=== PATIENT | male | born 2000 | race Caucasian/White ===

== ENCOUNTER 2023-11-28 01:08 | Inpatient (IN) | payer MEDICAID, OTHER ==
[~2023-11-28] VITALS: Ht 172.7 cm; Wt 58.6 kg
[~2023-11-28 01:08] MED LIST: tylenol
[2023-11-28] MEDS ORDERED: LORazepam 2 MG TABLET PO PRN (03:45)
[2023-11-28 03:58] LABS: COVID AG,FIA SOURCE NASAL SWAB
[2023-11-28 04:18] LABS: SARS-COV2 (COVID) ANTIGEN,FIA Negative (Negative)
[2023-11-28] MEDS: LORazepam 1 MG TABLET PO ONE (04:18)
[2023-11-28 05:08] VITALS: BP 138/88; PULSE 70; RESP 18; TEMP 97.6
[2023-11-28] MEDS ORDERED: MAGNESIUM HYDROXIDE SUSPENSION 30 ML UDCUP PO PRN ×2 (07:00→07:15)
[2023-11-28] MEDS ORDERED: DOCUSATE SODIUM 100 MG CAPSULE PO PRN ×2 (07:00→07:15)
[2023-11-28] MEDS ORDERED: ALBUTEROL SULFATE HFA 90 MCG/PUFF 8 GM INHALER IH PRN ×2 (07:00→07:15)
[2023-11-28] MEDS ORDERED: MAG HYDROX/ALUMINUM HYD/SIMETH ES 30 ML SUSPENSION UDCUP PO PRN ×2 (07:00→07:15)
[2023-11-28] MEDS ORDERED: CloNIDine HCL 0.1 MG TABLET PO PRN ×2 (07:00→07:15)
[2023-11-28] MEDS ORDERED: IBUPROFEN 400 MG TABLET PO PRN ×2 (07:00→07:15)
[2023-11-28] MEDS ORDERED: ACETAMINOPHEN 325 MG TABLET PO PRN ×2 (07:00→07:15)
[2023-11-28] MEDS ORDERED: PETROLATUM,WHITE 28 GM JELLY TP PRN ×2 (07:00→07:15)
[2023-11-28] MEDS ORDERED: NICOTINE 14 MG/24 HOUR PATCH TD PRN ×2 (07:00→07:15)
[2023-11-28] MEDS ORDERED: ONDANSETRON HCL 4 MG TABLET PO PRN ×2 (07:00→07:15)
[2023-11-28] MEDS ORDERED: LOPERAMIDE HCL 2 MG CAPSULE PO PRN ×2 (07:00→07:15)
[2023-11-28] MEDS ORDERED: GuaiFENesin/D-METHORPHAN [SUGAR-FREE] 200-20MG/10 ML SYRUP UDCUP PO PRN ×2 (07:00→07:15)
[2023-11-28 08:13] LABS: BASOPHILS % (AUTO) 0.5 % (0.0-2.0); EOSINOPHILS % (AUTO) 0.6 % (1.0-6.0); HEMATOCRIT 43.6 % (41-53); HEMOGLOBIN 14.4 g/dL (13.5-17.5); LYMPHOCYTES # (AUTO) 3.6 K/uL (1.0-4.8); LYMPHOCYTES % (AUTO) 45.8 % (22.0-44.0); MEAN CORPUSCULAR HEMOGLOBIN 28.7 pg (26.0-34.0); MEAN CORPUSCULAR VOLUME 87 fL (80-100); MONOCYTES # (AUTO) 0.5 K/uL (0.1-1.0); MONOCYTES % (AUTO) 6.4 % (2.0-9.0); NEUTROPHILS # (AUTO) 3.6 K/uL (1.8-7.7); NEUTROPHILS % (AUTO) 46.7 % (40.0-70.0); PLATELET COUNT (AUTO) 240 K/uL (150-450); RED BLOOD CELL COUNT(AUTO) 5.02 MIL/uL (4.50-5.90); RED CELL DISTRIBUTION WIDTH 12.8 % (11.5-14.5); WHITE BLOOD COUNT (AUTO) 7.8 K/uL (4.5-11.0)
[2023-11-28 08:23] LABS: ANION GAP 10 mmol/L (8-16); CALCIUM, TOTAL 9.3 mg/dL (8.8-10.5); CARBON DIOXIDE 27 mmol/L (22-29); CHLORIDE 101 mmol/L (98-107); CREATININE 1.15 mg/dL (0.60-1.30); GLOMERULAR FILTR. RATE CALC > 60 mL/min (>60); GLUCOSE,RANDOM 88 mg/dL (70-110); POTASSIUM 3.5 mmol/L (3.5-5.1); SODIUM SERUM 138 mmol/L (136-145); UREA NITROGEN, BLOOD 8 mg/dL (7-18)
[2023-11-28 08:25] LABS: ALCOHOL, BLOOD (SERUM) < 3 mg/dL (0-10)
[2023-11-28 09:06] VITALS: BP 128/83; PULSE 92; RESP 20; TEMP 98.4
[2023-11-28] MEDS ORDERED: BUSP7.5T7 PO (12:02)
[2023-11-28] MEDS: BusPIRone HCL 5 MG TABLET PO SCH (13:05)
[2023-11-28] MEDS: SERTRALINE HCL 50 MG TABLET PO SCH (13:05)
[2023-11-28] MEDS ORDERED: *PATIENT'S OWN MED [ENTER DRUG, DOSE, FREQUENCY IN COMMENTS] CLINICAL ONE (17:45)
[2023-11-28] MEDS ORDERED: DORZOLAMIDE/TIMOLOL 2-0.5% [22.3-6.8MG/ML] 10 ML OPHTHALMIC SOLUTION OU SCH (18:00)
[2023-11-28] MEDS: DORZOLAMIDE/TIMOLOL 2-0.5% [22.3-6.8MG/ML] 10 ML OPHTHALMIC SOLUTION OU SCH (21:33)
[2023-11-28] MEDS: ZOLPIDEM TARTRATE 10 MG TABLET PO PRN (21:34)
[2023-11-28] MEDS: HALOPERIDOL 5 MG TABLET PO PRN (21:34)
[2023-11-28 21:35] VITALS: BP 135/79; PULSE 69; RESP 18; TEMP 98.2
[2023-11-29 08:00] VITALS: BP 130/63; PULSE 61; RESP 17; TEMP 98.6
[2023-11-29 09:11] LABS: BASOPHILS % (AUTO) 0.5 % (0.0-2.0); EOSINOPHILS % (AUTO) 0.4 % (1.0-6.0); HEMOGLOBIN 14.1 g/dL (13.5-17.5); LYMPHOCYTES # (AUTO) 1.2 K/uL (1.0-4.8); LYMPHOCYTES % (AUTO) 18.1 % (22.0-44.0); MEAN CORPUSCULAR HEMOGLOBIN 28.8 pg (26.0-34.0); MEAN CORPUSCULAR HGB CONC 32.9 G/dL (31.0-37.0); MEAN CORPUSCULAR VOLUME 87 fL (80-100); MONOCYTES # (AUTO) 0.4 K/uL (0.1-1.0); MONOCYTES % (AUTO) 5.7 % (2.0-9.0); NEUTROPHILS % (AUTO) 75.3 % (40.0-70.0); PLATELET COUNT (AUTO) 243 K/uL (150-450); RED BLOOD CELL COUNT(AUTO) 4.92 MIL/uL (4.50-5.90); WHITE BLOOD COUNT (AUTO) 6.7 K/uL (4.5-11.0)
[2023-11-29 09:20] LABS: HEMOGLOBIN A1C 5.6 % (3.8-5.6)
[2023-11-29 09:32] LABS: CHOL/HDL RATIO 3.2 (4.2-7.3)
[2023-11-29 09:35] LABS: ALANINE AMINOTRANSFERASE 15 U/L (12-78); ALBUMIN 4.2 g/dL (3.4-5.0); ALKALINE PHOSPHATASE 48 U/L (46-116); ANION GAP 9 mmol/L (8-16); ASPARTATE AMINOTRANSFERASE 10 U/L (15-37); BILIRUBIN,TOTAL 0.5 mg/dL (0.1-1.0); CALCIUM, TOTAL 9.5 mg/dL (8.8-10.5); CARBON DIOXIDE 31 mmol/L (22-29); CHLORIDE 104 mmol/L (98-107); CREATININE 1.17 mg/dL (0.60-1.30); GLOMERULAR FILTR. RATE CALC > 60 mL/min (>60); GLUCOSE,RANDOM 94 mg/dL (70-110); POTASSIUM 4.3 mmol/L (3.5-5.1); SODIUM SERUM 144 mmol/L (136-145); THYROID STIMULATING HORMONE 0.45 uIU/mL (0.36-3.74); TOTAL PROTEIN, SERUM 7.7 g/dL (6.4-8.2); UREA NITROGEN, BLOOD 13 mg/dL (7-18)
== END 2023-11-29 16:30 | disposition left against medical advice (07) | DRG 751 ==
LOC: EMS 01:08 → 3EI 04:45
PROVIDERS: ADMIT Psychiatry & Neurology Psychiatry; ATTEND Psychiatry & Neurology Psychiatry
DX: F33.2 Major depressive disorder, recurrent severe without psychotic features (principal); R45.851 Suicidal ideations; F41.9 Anxiety disorder, unspecified; Z20.822 Contact with and (suspected) exposure to COVID-19; Z53.29 Procedure and treatment not carried out because of patient's decision for other reasons; G47.00 Insomnia, unspecified; K59.00 Constipation, unspecified; R10.13 Epigastric pain; F10.90 Alcohol use, unspecified, uncomplicated; Y90.9 Presence of alcohol in blood, level not specified; Z79.899 Other long term (current) drug therapy; Z91.011 Allergy to milk products
CPT/HCPCS: 80048; 80053; 80061; 83036; 84443; 85025; 99285; G0480